=== PATIENT | male | born 1965 ===

== ENCOUNTER 2024-12-27 21:30 | Outpatient (REF) | payer MEDICARE, MEDICAID, SELFPAY ==
[2024-12-27 22:09] LABS: Hematocrit 25.7 % (42.0-54.0); Hemoglobin 8.3 g/dL (14.0-18.0); Immature Granulocytes Abs Auto 0.04 10^3/uL (0.00-0.03); Immature Granulocytes Pct Auto 1.0 % (0.0-0.5); Lymphocytes Absolute Auto 0.7 10^3/uL (1.2-3.8); Mean Corpuscular HGB Conc 32.3 g/dL (29.9-35.2); Mean Corpuscular Hemoglobin 31.6 pg (25.9-34.0); Mean Corpuscular Volume 97.7 fL (80.0-94.0); Platelet Count 103 10^3/uL (150-450); Red Blood Count 2.63 10^6/uL (4.70-6.10); White Blood Count 4.1 10^3/uL (4.0-11.0)
== END 2024-12-27 21:31 | disposition home or self-care (01) ==
LOC: LAB 21:30
PROVIDERS: PCP Internal Medicine; Visit Provider Internal Medicine
DX: Z79.899 Other long term (current) drug therapy (principal)
CPT/HCPCS: 36415; 85025